=== PATIENT | male | born 1990 | race Caucasian/White ===

== ENCOUNTER 2016-11-10 19:18 | Emergency (ER) | payer BC, MEDICAID ==
[2016-11-10 20:14] VITALS: BP 150/98
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
== END 2016-11-11 02:30 ==
LOC: JP.ED 19:18
DX: R45.4 Irritability and anger (principal); F32.9 Major depressive disorder, single episode, unspecified; R44.0 Auditory hallucinations; F22 Delusional disorders; F25.9 Schizoaffective disorder, unspecified; Z88.0 Allergy status to penicillin; Z87.891 Personal history of nicotine dependence
CPT/HCPCS: 99285

== ENCOUNTER 2016-11-20 19:23 | Emergency (ER) | payer MEDICAID ==
--- NOTE | 2016-11-20 21:49 | EDM.PDOC ---
ED HPI GENERAL MEDICAL PROBLEM - General Chief Complaint: Behavioral/Psych Stated Complaint: EVALUATION Time Seen by Provider: 11/20/16 20:50 Source of Information: Reports: Family, Provider History Limitations: Reports: Altered Mental Status (Delusional, schizophrenic, unable to answer questions appropriately) - History of Present Illness INITIAL COMMENTS - FREE TEXT/NARRATIVE: 26-year-old male with chronic schizoaffective disorder, refusing to take medications who has been incarcerated several times over the past month for disruptive and threatening behavior. An extensive evaluation was recently done by psychiatric services in [facility], a 72 hour hold was recommended by the applied exercise physiologist would not place the patient on a hold. He was then jailed, was released from nursing home yesterday and when he got home his father's was fearful for his health because he was so delusional. He has had previous suicidal attempts, thinks his food is being poisoned, is not thinking rationally at all. He needed to be brought in by law enforcement who are also insisting on a 72 hour hold. He is currently not violent. He does use marijuana but no other illegal drugs, he has not been drinking. Onset: Unknown/Unsure Associated Symptoms: Reports: No Other Symptoms Denies Pain Score (Numeric/FACES): 0 - Related Data Allergies Allergy/AdvReac Type Severity Reaction Status Date / Time Penicillins Allergy Rash Verified 11/20/16 19:41 Home Meds: Home Meds NK [No Known Home Meds] 03/03/13 [History] Past Medical History Musculoskeletal History: Reports: Fracture Psychiatric History: Reports: Anxiety, Depression, Psychosis, Schizophrenia Other Psychiatric History: Patient denies any problems Social & Family History - Tobacco Use Smoking Status *Q: Never Smoker Used Tobacco, but Quit: Yes Month Tobacco Last Used: 1 1/2 weeks ago Second Hand Smoke Exposure: No - Caffeine Use Caffeine Use: Reports: Soda - Alcohol Use Days Per Week of Alcohol Use: 0 - Recreational Drug Use Recreational Drug Use: No Drug Use in Last 12 Months: Yes Recreational Drug Type: Reports: Marijuana/Hashish Recreational Drug Use Frequency: Monthly ED ROS GENERAL - Review of Systems Review Of Systems: Unable To Obtain (Patient is to delusional and inconsistent with answers to do a review of systems) ED EXAM, BEHAVIORAL HEALTH - Physical Exam Exam: See Below Exam Limited By: No Limitations General Appearance: Alert, No Apparent Distress, Other (Actually cooperative at this time) Respiratory/Chest: No Respiratory Distress, Lungs Clear Cardiovascular: Regular Rate, Rhythm, Tachycardia (Slight tachycardia however he was just brought in by law enforcement) GI/Abdominal: Non-Tender Extremities: Normal Inspection Neurological: Alert, No Motor/Sensory Deficits, Oriented x 3 Psychiatric: Restless, Poor Eye Contact (Would not talk to the psych acupuncturist because of her "red eyes" is Dr. Hwang) Skin Exam: Warm, Dry COURSE, BEHAVIORAL HEALTH COMP - Course Vital Signs: Last Vital Signs Temp 98.1 F 11/21/16 04:00 Pulse 66 11/21/16 04:00 Resp 16 11/21/16 04:00 BP 127/71 11/21/16 04:00 Pulse Ox 96 11/21/16 04:00 Orders, Labs, Meds: Laboratory Tests 11/20/16 11/20/16 11/20/16 Range/Units 20:35 20:36 20:51 WBC 7.2 (4.5-11.0) K/uL RBC 5.10 (4.30-5.90) M/uL Hgb 15.5 H D (12.0-15.0) g/dL Hct 42.4 (40.0-54.0) % MCV 83 (80-98) fL MCH 30 (27-31) pg MCHC 37 H (32-36) % Plt Count 275 (150-400) K/uL Neut % (Auto) 63 (36-66) % Lymph % (Auto) 26 (24-44) % [place] % (Auto) 8 H (2-6) % Eos % (Auto) 1 L (2-4) % Baso % (Auto) 1 (0-1) % Sodium 143 (140-148) mmol/L Potassium 4.0 (3.6-5.2) mmol/L Chloride 104 (100-108) mmol/L Carbon Dioxide 29 (21-32) mmol/L Anion Gap 10.2 (5.0-14.0) mmol/L BUN 8 D (7-18) mg/dL Creatinine 1.1 (0.8-1.3) mg/dL Est Cr Clr Drug Dosing 102.66 mL/min Estimated GFR (MDRD) > 60 (>60) Glucose 123 H (74-106) mg/dL Calcium 9.1 (8.5-10.1) mg/dL Salicylates (2.0-20.0) mg/dL Urine Opiates Screen Negative (NEGATIVE) Ur Oxycodone Screen Negative (NEGATIVE) Urine Methadone Screen Negative (NEGATIVE) Ur Propoxyphene Screen Negative (NEGATIVE) Acetaminophen (10.0-30.0) ug/mL Ur Barbiturates Screen Negative (NEGATIVE) Ur Tricyclics Screen Negative (NEGATIVE) Ur Phencyclidine Scrn Negative (NEGATIVE) Ur Amphetamine Screen Negative (NEGATIVE) U Methamphetamines Scrn Negative (NEGATIVE) Urine MDMA Screen Negative (NEGATIVE) U Benzodiazepines Scrn Negative (NEGATIVE) U Cocaine Metab Screen Negative (NEGATIVE) U Marijuana (THC) Screen Positive H (NEGATIVE) Ethyl Alcohol mg/dL 11/20/16 11/20/16 11/20/16 Range/Units 20:51 20:51 20:51 WBC (4.5-11.0) K/uL RBC (4.30-5.90) M/uL Hgb (12.0-15.0) g/dL Hct (40.0-54.0) % MCV (80-98) fL MCH (27-31) pg MCHC (32-36) % Plt Count (150-400) K/uL Neut % (Auto) (36-66) % Lymph % (Auto) (24-44) % [place] % (Auto) (2-6) % Eos % (Auto) (2-4) % Baso % (Auto) (0-1) % Sodium (140-148) mmol/L Potassium (3.6-5.2) mmol/L Chloride (100-108) mmol/L Carbon Dioxide (21-32) mmol/L Anion Gap (5.0-14.0) mmol/L BUN (7-18) mg/dL Creatinine (0.8-1.3) mg/dL Est Cr Clr Drug Dosing mL/min Estimated GFR (MDRD) (>60) Glucose (74-106) mg/dL Calcium (8.5-10.1) mg/dL Salicylates 0.0 L (2.0-20.0) mg/dL Urine Opiates Screen (NEGATIVE) Ur Oxycodone Screen (NEGATIVE) Urine Methadone Screen (NEGATIVE) Ur Propoxyphene Screen (NEGATIVE) Acetaminophen 0.0 L (10.0-30.0) ug/mL Ur Barbiturates Screen (NEGATIVE) Ur Tricyclics Screen (NEGATIVE) Ur Phencyclidine Scrn (NEGATIVE) Ur Amphetamine Screen (NEGATIVE) U Methamphetamines Scrn (NEGATIVE) Urine MDMA Screen (NEGATIVE) U Benzodiazepines Scrn (NEGATIVE) U Cocaine Metab Screen (NEGATIVE) U Marijuana (THC) Screen (NEGATIVE) Ethyl Alcohol < 3 mg/dL Re-Assessment/Re-Exam: CBC, BMP, urine drug screen, EtOH salicylate and acetaminophen were obtained. Only abnormality was urine was positive for marijuana, he has had 2 other drug screens over the past 4 years here in the emergency room they were also positive for marijuana. Patient remained cooperative but delusional, he refused to eat because he was concerned it was poisoned. An extensive crisis evaluation recommended again a 72 hour hold. His father was very concerned about attempting to take him home again. Patient was accepted at [facility] for inpatient psychiatric treatment Departure - Departure Time of Disposition: 06:05 Disposition: DC/Tfer to Psych Hosp/Unit 65 Condition: Good Clinical Impression: Hallucinations, Outbursts of anger Schizophrenia Qualifiers: Schizophrenia type: undifferentiated schizophrenia Qualified Code(s): F20.3 - Undifferentiated schizophrenia - Discharge Information Referrals: PCP,None [Primary Care Provider] - Forms: ED Department Discharge Care Plan Goals: Patient was transferred to [facility] for inpatient psychiatric care.
[2016-11-21 05:02] VITALS: BP 127/71
== END 2016-11-21 06:05 ==
LOC: JP.ED 19:23
DX: F20.3 Undifferentiated schizophrenia (principal); R45.4 Irritability and anger; Z88.0 Allergy status to penicillin
CPT/HCPCS: 36415; 80048; 80305; 85025; 99285; G0480

== ENCOUNTER 2017-05-01 04:50 | Emergency (ER) | payer MEDICAID ==
[2017-05-01 05:14] VITALS: BP 124/94
[2017-05-01] MEDS ORDERED: diphenhydrAMINE 25 MG Cap PO ONE (05:46)
[2017-05-01] MEDS ORDERED: diphenhydrAMINE 25 MG Cap ONE (05:47)
--- NOTE | 2017-05-01 05:49 | EDM.PDOCBH ---
ED HPI GENERAL MEDICAL PROBLEM - General Chief Complaint: Behavioral/Psych Stated Complaint: MED EVAL Time Seen by Provider: 05/01/17 05:36 Source of Information: Reports: Patient, Family (Mother) History Limitations: Reports: Other (Mental health illness, poor insight) - History of Present Illness INITIAL COMMENTS - FREE TEXT/NARRATIVE: Brought in by mother Chief complaint: Restlessness, insomnia History of present illness: 26-year-old male with schizophrenia, presumptively paranoid, from review of chart, recently in a psychiatric facility in [place]. Discharged April 05. He is on injectable inVega and oral Zyprexa. Has also been prescribed Cogentin twice daily on a "as needed" basis. Unable to sleep for the last 5 nights, restless and pacing. He denies hallucinations and denies anyone is after more than he is in danger. His mom was able to persuade him to come in, but shortly after I saw him he wanted to go home again. Has had several psychiatric admissions previously. Denies any recent illness or infection by his mother supply the information that he was treated for tickborne illness with fever several weeks ago, was treated with doxycycline. No fever in the last couple of weeks, no vomiting or diarrhea No cold symptoms - Related Data Allergies Allergy/AdvReac Type Severity Reaction Status Date / Time Penicillins Allergy Rash Verified 05/01/17 05:15 Home Meds: Home Meds Benztropine [Cogentin] 1 mg PO BID 05/01/17 [History] Invvega 05/01/17 [History] OLANZapine [ZyPREXA Zydis] 10 mg PO DAILY 05/01/17 [History] Past Medical History Musculoskeletal History: Reports: Fracture Psychiatric History: Reports: Anxiety, Depression, Hallucinations, Psychosis, Schizophrenia Other Psychiatric History: Patient denies any problems Social & Family History - Tobacco Use Smoking Status *Q: Current Every Day Smoker Years of Tobacco use: 3 Packs/Tins Daily: 0.5 Used Tobacco, but Quit: Yes Month Tobacco Last Used: 1 1/2 weeks ago Second Hand Smoke Exposure: No - Caffeine Use Caffeine Use: Reports: Soda - Alcohol Use Days Per Week of Alcohol Use: 0 - Recreational Drug Use Recreational Drug Use: No Drug Use in Last 12 Months: Yes Recreational Drug Type: Reports: Marijuana/Hashish Recreational Drug Use Frequency: Monthly ED ROS GENERAL - Review of Systems Review Of Systems: See Below Constitutional: Reports: Fatigue. Denies: Fever, Weight Loss HEENT: Reports: No Symptoms Respiratory: Reports: No Symptoms Cardiovascular: Reports: No Symptoms GI/Abdominal: Reports: No Symptoms Musculoskeletal: Reports: No Symptoms Neurological: Reports: No Symptoms Psychiatric: Reports: Other (Restlessness and insomnia, denies hallucinations or delusions) Immunologic: Reports: No Symptoms ED EXAM, BEHAVIORAL HEALTH - Physical Exam Exam: See Below Exam Limited By: No Limitations General Appearance: Alert, Moderate Distress, Other (Pacing constantly, unable to sit still but does answer questions appropriately, Tachycardia, afebrile) Eye Exam: Bilateral Eye: EOMI, Normal Inspection Nose: Normal Inspection Head: Atraumatic, Normocephalic Neck: Normal Inspection Respiratory/Chest: No Respiratory Distress, No Accessory Muscle Use Cardiovascular: Regular Rate, Rhythm, Tachycardia Back Exam: Other (Normal gait) Neurological: Alert, Normal Gait, No Motor/Sensory Deficits Psychiatric: Alert, Flat Affect, Restless. No: Poor Eye Contact, Flight of Ideas, Suicidal Thoughts, Auditory Hallucinations, Visual Hallucinations, Threatening Behavior Skin Exam: Warm, Dry, Intact, Normal color, No rash COURSE, BEHAVIORAL HEALTH COMP - Course Vital Signs: Last Vital Signs Temp 36.3 C 05/01/17 05:12 Pulse 136 H 05/01/17 05:12 Resp 18 05/01/17 05:12 BP 124/94 H 05/01/17 05:12 Pulse Ox 95 05/01/17 05:12 Orders, Labs, Meds: Medications Discontinued Medications Generic Name Dose Route Start Last Admin Trade Name Slama PRN Reason Stop Dose Admin Diphenhydramine HCl 50 mg 05/01/17 05:46 05/01/17 05:49 Benadryl PO 05/01/17 05:47 50 mg ONETIME ONE Administration Diphenhydramine HCl Confirm 05/01/17 05:47 Benadryl Administered 05/01/17 05:48 Dose 50 mg .ROUTE .STK-MED ONE Re-Assessment/Re-Exam: 26-year-old male with paranoid schizophrenia presenting with restlessness and insomnia for 5 days. He does have an appointment tomorrow at the clinic and will get his long-acting antipsychotic injection at that point. Notably has significant tachycardia. Denies any drug ingestion other than marijuana and his prescribed medications. Differential diagnoses includes exacerbation of his schizophrenia, akathisia from his medication, onset of infection among other causes. Of these processes, he does not appear to be delusional at this point but clearly restless and he reported that he has not been taking the Cogentin, understands that is to be taken "as needed" but he didn't know what that meant. I explained it would probably be better to take it regularly but for now to get him settled down more quickly I recommended an injection of Benadryl which she initially accepted. Shortly after I left the room the approach nurses desk saying he didn't want to take the injection does want to go home. After some persuading is able to get him to agree to take oral Benadryl and he was given 50 mg. I have no the can feel free to return should he feel that someone is after him that he started having hallucinations or if he does not improve. Does have an appointment at 2 PM at the clinic for his injection. At this point I do not justification for holding in treating him involuntarily but should he become paranoid or delusional or have hallucinations then that he needs to return to emergency or of the ambulance called. Instruct him to start taking Cogentin regularly to combat the restlessness rather than on an as-needed basis. Departure - Departure Time of Disposition: 05:47 Disposition: DC/Tfer to [facility] Condition: Fair Clinical Impression: Restlessness - Discharge Information Instructions: Insomnia Referrals: PCP,None [Primary Care Provider] - Forms: ED Department Discharge Additional Instructions: Restlessness is a common side effect of medications given for depression and anxiety. Take your Cogentin regularly twice daily rather than "as needed". This will help combat the restlessness and enable you to sleep better. You've been given a similar medicine, Benadryl, by mouth here in emergency. Started taking Cogentin regularly later today
== END 2017-05-01 05:55 | disposition home or self-care (01) ==
LOC: JP.ED 04:50
DX: R45.1 Restlessness and agitation (principal); F17.210 Nicotine dependence, cigarettes, uncomplicated; F20.9 Schizophrenia, unspecified; Z88.0 Allergy status to penicillin; Z79.899 Other long term (current) drug therapy
CPT/HCPCS: 99283; A9270

== ENCOUNTER 2022-12-15 08:30 | Emergency (ER) | payer MEDICAID ==
[2022-12-15] MEDS ORDERED: Sodium Chloride 0.9% 10 ML Syringe FLUSH PRN (08:36)
[2022-12-15] MEDS ORDERED: Adenosine 6 MG/2 ML SDV IVPUSH ONE ×2 (08:37)
[2022-12-15 08:42] LABS: BASOPHILS PERCENT AUTO 0.2 % (0.1-1.3); HEMATOCRIT 30.2 % (38.4-49.7); HEMOGLOBIN 9.7 g/dL (12.9-16.9); IMMATURE GRAN PERCENT AUTO 0.8 % (0.0-0.7); LYMPHOCYTES ABSOLUTE AUTO 1.56 K/uL (0.8-3.3); LYMPHOCYTES PERCENT AUTO 12.3 % (11.4-47.7); MEAN CORPUSCULAR HEMOGLOBIN 25.7 pg (31.6-35.5); MEAN CORPUSCULAR HGB CONC 32.1 g/dL (31.6-35.5); MEAN CORPUSCULAR VOLUME 80.1 fL (81.4-99.0); MONOCYTES ABSOLUTE AUTO 0.89 K/uL (0.20-0.90); NEUTROPHILS ABSOLUTE AUTO 10.08 K/uL (1.0-7.6); NEUTROPHILS PERCENT AUTO 79.7 % (40.0-78.1); PLATELET COUNT,PLT 424 K/uL (130-375); RED BLOOD CELL COUNT 3.77 M/uL (4.14-5.76); WHITE BLOOD CELL COUNT,WBC 12.7 K/uL (3.2-11.0)
[2022-12-15 08:43] LABS: BASOPHILS ABSOLUTE AUTO 0.02 K/uL (0.00-0.10)
[2022-12-15] MEDS: Sodium Chloride 0.9% 1,000 ML IV SCH ×3 (08:43→10:52)
[2022-12-15 09:06] LABS: A/G RATIO 0.3 (1.2-2.2); ALANINE AMINOTRANSFERASE,ALT 81 U/L (12-78); ALBUMIN 1.7 g/dL (3.4-5.0); ALKALINE PHOSPHATASE 118 U/L (46-116); ASPARTATE AMNIOTRANSFERASE,AST 69 U/L (15-37); BILIRUBIN TOTAL 0.6 mg/dL (0.2-1.0); BLOOD UREA NITROGEN,BUN 8 mg/dL (7-18); CALCIUM 8.3 mg/dL (8.5-10.1); CARBON DIOXIDE,CO2 26 mmol/L (21-32); CHLORIDE,CL 94 mmol/L (100-108); CREATININE 0.9 mg/dL (0.8-1.3); ESTIMATED GFR 117 mL/min (>60); GLUCOSE RANDOM 115 mg/dL (74-106); POTASSIUM,K 3.4 mmol/L (3.6-5.2); PROTEIN TOTAL,TP 7.8 g/dL (6.4-8.2); SODIUM,NA 129 mmol/L (140-148)
[2022-12-15 09:07] LABS: ANION GAP 12.4 mmol/L (5.0-14.0); TROPONIN I HIGH SENSITIVITY < 4.0 pg/mL (<=60.3)
[2022-12-15] MEDS ORDERED: Iopamidol 755 Mg/ML 100 ML Bottle IV ONE (09:33)
[2022-12-15] MEDS ORDERED: Sodium Chloride 0.9% 75 ML IV SCH (09:45)
[2022-12-15] MEDS ORDERED: Meropenem 1 GM in Sodium Chloride 0.9% 100 ML IV ONE (10:17)
[2022-12-15] MEDS ORDERED: Lactated Ringers 1,000 ML IV ONE ×2 (10:23→12:12)
[2022-12-15] MEDS ORDERED: Vancomycin 2 GM in Sodium Chloride 0.9% 500 ML IV ONE (13:00)
[2022-12-15 19:06] VITALS: BP 114/71; PULSE 135
== END 2022-12-15 19:14 ==
LOC: JP.ED 08:30
DX: J86.9 Pyothorax without fistula (principal); R00.0 Tachycardia, unspecified; Z87.891 Personal history of nicotine dependence; Z88.0 Allergy status to penicillin
CPT/HCPCS: 36415; 71045; 71275; 74177; 80053; 83605; 83690; 84145; 84484; 85025; 86140; 87040; 93005; 96365; 96366; 96367; 96375; 99285; J0153; J2185; J3370; J3490; J7030; J7040; J7120